=== PATIENT | female | born 1945 | race Hispanic/Latino ===

== ENCOUNTER 2020-07-14 13:41 | Outpatient (CLI) | payer MEDICARE ==
[2020-07-14 14:22] LABS: Basophils # (Auto) 0.1 K/mm3 (0.0-0.1); Basophils % (Auto) 0.8 % (0.0-1.8); Eosinophils # (Auto) 0.3 K/mm3 (0.0-0.4); Eosinophils % (Auto) 4.9 % (0.0-4.3); Hematocrit 36.3 % (30.3-42.9); Hemoglobin 12.7 gm/dl (10.1-14.3); Lymphocytes # (Auto) 2.1 K/mm3 (1.2-5.4); Mean Corpuscular HGB Conc 35 % (30-34); Mean Corpuscular Volume 109 fl (79-97); Monocytes # (Auto) 0.5 K/mm3 (0.0-0.8); Monocytes % (Auto) 6.7 % (0.0-7.3); Platelet Count 141 K/mm3 (140-440); Red Blood Count 3.35 M/mm3 (3.65-5.03); Red Cell Distribution Width 13.8 % (13.2-15.2)
[2020-07-14 14:38] LABS: Albumin 4.5 g/dL (3.9-5); Calcium 9.3 mg/dL (8.4-10.2)
[2020-07-14 14:43] LABS: Erythrocyte Sedimentation Rate 23 mm/Hr (0-20)
[2020-07-18 13:13] LABS: Vitamin D, 25-OH, D2 4 ng/mL
== END 2020-07-14 13:42 | disposition home or self-care (01) ==
LOC: LAB 13:41
PROVIDERS: ATTEND Specialist
DX: G62.9 Polyneuropathy, unspecified (principal); G72.9 Myopathy, unspecified; R73.03 Prediabetes; A53.9 Syphilis, unspecified
CPT/HCPCS: 36415; 80053; 82085; 82306; 82550; 82607; 83036; 83921; 84443; 85025; 85652; 86334; 86592